=== PATIENT | male | born 1995 | race African-American/Black ===

== ENCOUNTER 2017-02-26 12:25 | Emergency (ER) | payer SELFPAY ==
[~2017-02-26] VITALS: Ht 170.2 cm; Wt 68.0 kg
[2017-02-26] MEDS ORDERED: SODIUM CHLORIDE 0.9% 500 ML IV ONE (13:03)
[2017-02-26 13:58] LABS: BASOPHILS % 0.8 % (0.0-2.0); EOSINOPHILS % 0.5 % (0.0-5.0); HEMATOCRIT. 41.2 % (42.0-52.0); HEMOGLOBIN. 14.3 g/dL (14.0-18.0); LYMPHOCYTES % 29.4 % (20.0-50.0); MEAN CORPUSCULAR HEMOGLOBIN 29.8 pg (28.0-32.0); MEAN CORPUSCULAR VOLUME 85.9 fL (80.0-94.0); MEAN PLATELET VOLUME 10.3 fl (7.4-10.4); MONOCYTES % 4.6 % (2.0-8.0); NEUTROPHILS % 64.7 % (40.0-76.0); PLATELET 136 x1000/uL (130-400); RED BLOOD CELL COUNT 4.79 mill/uL (4.7-6.1); RED CELL DISTRIBUTION WIDTH 13.6 % (11.6-14.6)
[2017-02-26 14:15] LABS: CARBON DIOXIDE 27 mEq/L (21-32); CHLORIDE 106 mEq/L (98-107); TROPONIN I < 0.02 ng/mL (0.00-0.04)
[2017-02-26 14:32] LABS: INR 1.1; PARTIAL THROMBOPLASTIN TIME 26.2 sec (24.0-34.0)
[2017-02-26 15:13] LABS: CLARITY URINE CLEAR (CLEAR); COLOR URINE YELLOW (YELLOW); GLUCOSE URINE NEGATIVE (NEGATIVE); KETONES URINE NEGATIVE (NEGATIVE); LEUKOCYTE ESTERASE URINE NEGATIVE (NEGATIVE); NITRITE URINE NEGATIVE (NEGATIVE); OCCULT BLOOD URINE NEGATIVE (NEGATIVE); PROTEIN URINE NEGATIVE (NEGATIVE); SPECIFIC GRAVITY URINE 1.007 (1.005-1.030); UROBILINOGEN URINE 0.2 E.U./dL (0.2-1.0)
[2017-02-26 15:40] VITALS: BP 130/82
== END 2017-02-26 16:30 | disposition home or self-care (01) ==
LOC: ER 16:26
DX: J40 Bronchitis, not specified as acute or chronic (principal); F12.10 Cannabis abuse, uncomplicated; F17.200 Nicotine dependence, unspecified, uncomplicated
CPT/HCPCS: 36415; 71010; 80053; 81003; 83690; 83880; 84443; 84484; 85025; 85379; 85610; 85730; 93005; 96360; 96361; 99285; J7030; J7040; Z7610